=== PATIENT | male | born 1970 | race Two or more races ===

== ENCOUNTER 2023-07-19 15:54 | Emergency (ER) | payer OTHER ==
[~2023-07-19] VITALS: Ht 165.1 cm; Wt 83.9 kg
[2023-07-19 16:00] VITALS: BP 136/70; PULSE 75; RESP 17; TEMP 97.5; O2SAT 98
[2023-07-19] MEDS ORDERED: CYCL-711 PO (16:57)
[2023-07-19] MEDS ORDERED: IBUP-2218 PO (16:57)
[2023-07-19] MEDS ORDERED: ACET-10509 PO (16:57)
== END 2023-07-19 17:06 | disposition home or self-care (01) ==
LOC: MED 15:54
DX: S33.5XXA Sprain of ligaments of lumbar spine, initial encounter (principal); M47.896 Other spondylosis, lumbar region; Z79.899 Other long term (current) drug therapy; Z98.890 Other specified postprocedural states; W11.XXXA Fall on and from ladder, initial encounter; Y93.89 Activity, other specified; Y92.89 Other specified places as the place of occurrence of the external cause; Y99.8 Other external cause status
CPT/HCPCS: 72110; 99283

== ENCOUNTER 2024-07-30 13:45 | Emergency (ER) | payer OTHER ==
[~2024-07-30] VITALS: Ht 165.1 cm; Wt 92.5 kg
[~2024-07-30 13:45] MED LIST: ACET500T99 PO; CYCL-711 PO; IBUP-2218 PO
[2024-07-30 13:51] VITALS: BP 131/76; PULSE 80; RESP 16; TEMP 97.3; O2SAT 98
[2024-07-30] MEDS: CYCLOBENZAPRINE 10 MG TAB PO ONE (14:44)
[2024-07-30] MEDS: LIDOCAINE 5% 1 EA PATCH TP ONE (14:45)
[2024-07-30] MEDS: KETOROLAC 30 MG/ML VIAL IM ONE (14:46)
[2024-07-30] MEDS: HYDROcodone/APAP 5/325 MG 1 TAB TAB PO ONE (15:58)
[2024-07-30] MEDS ORDERED: LID5T TP (16:27)
[2024-07-30] MEDS ORDERED: NAPR-1704 PO (16:27)
[2024-07-30] MEDS ORDERED: ACET-8905 PO (16:27)
[2024-07-30] MEDS ORDERED: CYCL-711 PO (16:27)
[2024-07-30 16:37] VITALS: BP 131/76; PULSE 80; RESP 16; TEMP 97.3; O2SAT 98
--- NOTE | 2024-07-30 16:38 | NUR ---
Patient discharged with v/s stable. Written and verbal after care instructions given and explained. Patient alert, oriented and verbalized understanding of instructions. Ambulatory with steady gait. All questions addressed prior to discharge. ID band removed. Patient advised to follow up with PMD. Rx of NORCO, LEXERIL, LIDOCAINE PATCH, NAPROXEN given. Patient educated on indication of medication including possible reaction and side effects. Opportunity to ask questions provided and answered.
== END 2024-07-30 16:38 | disposition home or self-care (01) ==
LOC: MED 13:45
DX: S29.012A Strain of muscle and tendon of back wall of thorax, initial encounter (principal); Z79.899 Other long term (current) drug therapy; X58.XXXA Exposure to other specified factors, initial encounter; Y92.89 Other specified places as the place of occurrence of the external cause; Y93.89 Activity, other specified; Y99.8 Other external cause status
CPT/HCPCS: 96372; 99284; J1885